=== PATIENT | female | born 2005 | race Two or more races ===

== ENCOUNTER 2024-03-20 23:14 | Emergency (ER) | payer OTHER, SELFPAY ==
[~2024-03-20] VITALS: Ht 157.5 cm; Wt 87.2 kg
[2024-03-21 00:33] VITALS: RESP 17; O2SAT 99
[2024-03-21] MEDS: KETOROLAC TROMETH 60MG/2ML VIAL IM ONE (02:35)
[2024-03-21] MEDS ORDERED: IBUP-1454 PO (03:07)
[2024-03-21 03:34] VITALS: BP 108/75; PULSE 75; TEMP 97.8
== END 2024-03-21 03:36 | disposition home or self-care (01) ==
LOC: ER 23:14
DX: S60.011A Contusion of right thumb without damage to nail, initial encounter (principal); W22.8XXA Striking against or struck by other objects, initial encounter; Y93.89 Activity, other specified; Y92.89 Other specified places as the place of occurrence of the external cause; Y99.8 Other external cause status
CPT/HCPCS: 29130; 73140; 96372; 99283; J1885